=== PATIENT | male | born 1970 | race African-American/Black ===

== ENCOUNTER 2019-06-30 04:34 | Emergency (ER) | payer OTHER ==
[~2019-06-30] VITALS: Ht 185.4 cm; Wt 116.0 kg
--- NOTE | 2019-06-30 04:44 | PHYS DOC ---
Past History Past Medical History: Asthma Adult General Chief Complaint Chief Complaint: ".. My asthma kicking.. I been bola sick since ... My inhalier not doing the job.. " HPI HPI Patient is a 48 year old male prisoner from [facility] who presents with above hx and complaints increased wheezing and cough. Patient does have a history of asthma. Patient states he no longer smokes. Patient has had a previous ICU admission and intubation for an asthma exacerbation approximately 20 years ago. Patient does not know his best peak flow. Patient denies any travel. Patient denies any specific ill contacts but states there is other people at [facility] that are sick. Patient does not know if he had a flu vaccination this season. Patient has been a [facility] since April. Is due to be released in July. 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 Review of Systems Review of Systems Constitutional: Denies fever or chills [] Eyes: Denies change in visual acuity, redness, or eye pain [] HENT: Hx. nasal congestion and sore throat [] Respiratory: Hx of cough and wheezing Cardiovascular: No additional information not addressed in HPI [] GI: Denies abdominal pain, nausea, vomiting, bloody stools or diarrhea [] : Denies dysuria or hematuria [] Musculoskeletal: Denies back pain or joint pain [] Integument: Denies rash or skin lesions [] Neurologic: Denies headache, focal weakness or sensory changes [] Endocrine: Denies polyuria or polydipsia [] All other systems were reviewed and found to be within normal limits, except as documented in this note. Family History Family History Noncontributory Current Medications Current Medications See nursing for home meds Allergies Allergies No known drug allergies Physical Exam Physical Exam Constitutional: Well developed, well nourished, no acute distress, non-toxic appearance. [] HENT: Normocephalic, atraumatic, bilateral external ears normal, oropharynx moist, mild pharyngeal injection, no oral exudates, nose swollen turbinates and rhinorrhea Eyes: PERRLA, EOMI, conjunctiva normal, no discharge. [] Neck: Normal range of motion, no tenderness, supple, no stridor. [] Cardiovascular:Heart rate regular rhythm, no murmur [] Lungs & Thorax: Bilateral breath sounds equal apex with scattered wheezes on auscultation [] Abdomen: Bowel sounds normal, soft, no tenderness, no masses, no pulsatile masses. [] Skin: Warm, dry, no erythema, no rash. Multiple tattoos Back: No tenderness, no CVA tenderness. [] Extremities: No tenderness, no cyanosis, no clubbing, ROM intact, no edema. [] No cording appreciated Neurologic: Alert and oriented X 3, normal motor function, normal sensory function, no focal deficits noted. [] Psychologic: Affect normal, judgement normal, mood normal. [] EKG EKG [] Radiology/Procedures Radiology/Procedures [] Course & Med Decision Making Course & Med Decision Making Pertinent Labs and Imaging studies reviewed. (See chart for details) Patient uses MDI 2 puffs 4 times a day. Patient take prednisone 50 mg day for 5 days. Patient follow-up primary care. Return of any concerns. Patient take Tylenol and ibuprofen as needed for discomfort. Impression: 1. Asthma Exacerbation 2. Upper Respiratory Infection- 3. Viral Syndrome Dragon Disclaimer Dragon Disclaimer This electronic medical record was generated, in whole or in part, using a voice recognition dictation system. Departure Departure: Disposition: 01 HOME/RESIDENCE PRIOR TO ADM Condition: STABLE Scripts Prednisone (PREDNISONE) 50 Mg Tablet 50 MG PO DAILY for asthma for 5 Days, #5 TAB Prov: EDNA ALCOCER MD 06/30/19 Ramy Disclaimer This chart was dictated in whole or in part using Voice Recognition software in a busy, high-work load, and often noisy Emergency Department environment. It may contain unintended and wholly unrecognized errors or omissions. Dragon Disclaimer This chart was dictated in whole or in part using Voice Recognition software in a busy, high-work load, and often noisy Emergency Department environment. It may contain unintended and wholly unrecognized errors or omissions. EDNA ALCOCER MD Jun 30, 2019 04:44
[2019-06-30] MEDS ORDERED: ALBUTEROL SULFATE 8GM INHALER. INH ONE (05:15)
[2019-06-30] MEDS ORDERED: predniSONE 10 MG TABLET PO ONE (05:15)
[2019-06-30] MEDS ORDERED: PRED50TA PO (05:19)
[2019-06-30 05:57] LABS: INFLUENZA A PATIENT NEGATIVE (NEGATIVE); INFLUENZA B PATIENT NEGATIVE (NEGATIVE)
[2019-06-30 06:40] VITALS: BP 153/102
--- NOTE | 2019-07-01 08:02 | EKG ---
[address] [address] Test Date: 2019-06-30 Test Time: 04:50:03 Pat Name: YONG STERN Department: Room: Gender: M Business Education Teacher: : 1970 Requested By: EDNA ALCOCER Order Number: [id number] Reading MD: Gucci Farrell MD Measurements Intervals [place] Rate: 70 P: 72 NE: 182 QRS: 67 QRSD: 80 T: 74 QT: 372 QTc: 404 Interpretive Statements SINUS RHYTHM Electronically Signed On 07-01-2019 13:26:20 [employer]IC [employer] TEACH[employer] by Gucci Farrell MD
== END 2019-06-30 06:40 | disposition home or self-care (01) ==
LOC: ER 04:34
DX: J45.901 Unspecified asthma with (acute) exacerbation (principal); J06.9 Acute upper respiratory infection, unspecified; B34.9 Viral infection, unspecified
CPT/HCPCS: 87070; 87804; 87880; 94640; 99285; J7512; 94664